=== PATIENT | male | born 1955 | race Caucasian/White ===

== ENCOUNTER 2021-03-03 16:00 | Inpatient (IN) | payer MEDICARE, MEDICAID ==
[2021-03-03] MEDS ORDERED: Ondansetron PF 4 MG/2 ML Vial SLOW IVP PRN (21:02)
[2021-03-03] MEDS ORDERED: Albuterol Sulfate 2.5 mg/3 ml Neb NEB PRN (21:02)
[2021-03-03] MEDS ORDERED: Acetaminophen 325 MG TAB PO PRN ×2 (21:08→21:12)
[2021-03-03] MEDS ORDERED: Meropenem 500 MG VIAL IV SCH (21:15)
[2021-03-03 21:51] LABS: Calc. Creatinine Clearance 0 mL/min (70-130)
[2021-03-03] MEDS ORDERED: Meropenem 1 GM in Sodium Chloride 0.9% 100 ML IVPB SCH (22:00)
[2021-03-03 22:30] VITALS: BMI 20.1
[2021-03-04 05:12] LABS: #Basophils 0.1 thou/uL (0.0-0.2); #Eosinphils 0.2 thou/uL (0.0-0.7); #Lymphocytes 0.7 thou/uL (1.20-3.40); #Monocytes 0.5 thou/uL (0.11-0.59); #Neutrophils 3.1 thou/uL (1.40-6.50); %Basophils 2.3 % (0.0-1.0); %Eosinophils 4.2 % (0.0-10.0); %Lymphocytes 14.8 % (21.0-51.0); %Monocytes 10.9 % (0.0-10.0); %Neutrophils 67.8 % (42.0-75.0); Hemoglobin 13.3 g/dL (14.0-18.0); Mean Corpuscular HGB CONC 33.5 g/dL (32.0-36.0); Mean Corpuscular Hemoglobin 33.4 pg (27.0-31.0); Mean Corpuscular Volume 99.9 fL (78.0-98.0); Platelet Count 138 thou/uL (130-400); RBC Distribution Width 13.4 % (11.5-14.5); Red Blood Cell (RBC) Count 3.96 mill/uL (4.70-6.10); White Blood Cell (WBC) Count 4.6 thou/uL (4.8-10.8)
[2021-03-04 05:18] LABS: Anion Gap 10 mmol/L (10-20); BUN (Urea Nitrogen) 7 mg/dL (8.4-25.7); Calc. Creatinine Clearance 130 mL/min (70-130); Calcium 8.1 mg/dL (7.8-10.44); Carbon Dioxide 22 mmol/L (23-31); Chloride 108 mmol/L (98-107); Glucose 86 mg/dL (80-115); Potassium 3.9 mmol/L (3.5-5.1); Sodium 136 mmol/L (136-145)
[2021-03-04] MEDS: Meropenem 1 GM in Sodium Chloride 0.9% 100 ML IVPB SCH ×3 (06:02→21:32)
[2021-03-04] MEDS: Senokot S 8.6-50 MG TAB PO SCH ×2 (09:54→21:33)
[2021-03-04] MEDS: Polyethylene Glycol 3350 17 GM Packet PO SCH (09:54)
[2021-03-04] MEDS: Calcium Carbonate 600 MG + Vit D TAB PO SCH (09:55)
[2021-03-04 14:10] LABS: SARS-CoV-2 PCR by NAA Not Detected (NotDetected)
[2021-03-05] MEDS: Senokot S 8.6-50 MG TAB PO SCH ×2 (09:32→21:32)
[2021-03-05] MEDS: Calcium Carbonate 600 MG + Vit D TAB PO SCH (09:32)
[2021-03-05] MEDS: Polyethylene Glycol 3350 17 GM Packet PO SCH (09:33)
[2021-03-05] MEDS: Meropenem 1 GM in Sodium Chloride 0.9% 100 ML IVPB SCH ×3 (09:35→21:35)
[2021-03-06] MEDS: Meropenem 1 GM in Sodium Chloride 0.9% 100 ML IVPB SCH ×3 (06:10→21:23)
[2021-03-06] MEDS: Calcium Carbonate 600 MG + Vit D TAB PO SCH (10:37)
[2021-03-06] MEDS: Senokot S 8.6-50 MG TAB PO SCH ×2 (10:37→21:23)
[2021-03-06] MEDS: Polyethylene Glycol 3350 17 GM Packet PO SCH (10:38)
[2021-03-07] MEDS: Meropenem 1 GM in Sodium Chloride 0.9% 100 ML IVPB SCH ×3 (05:38→21:40)
[2021-03-07] MEDS: Senokot S 8.6-50 MG TAB PO SCH ×2 (10:13→21:37)
[2021-03-07] MEDS: Calcium Carbonate 600 MG + Vit D TAB PO SCH (10:13)
[2021-03-07] MEDS: Polyethylene Glycol 3350 17 GM Packet PO SCH (10:13)
[2021-03-08] MEDS: Meropenem 1 GM in Sodium Chloride 0.9% 100 ML IVPB SCH ×3 (06:17→21:36)
[2021-03-08] MEDS: Polyethylene Glycol 3350 17 GM Packet PO SCH (09:39)
[2021-03-08] MEDS: Senokot S 8.6-50 MG TAB PO SCH ×2 (09:39→21:37)
[2021-03-08] MEDS: Calcium Carbonate 600 MG + Vit D TAB PO SCH (09:39)
[2021-03-09] MEDS: Meropenem 1 GM in Sodium Chloride 0.9% 100 ML IVPB SCH ×3 (05:48→21:29)
[2021-03-09] MEDS: Calcium Carbonate 600 MG + Vit D TAB PO SCH (08:14)
[2021-03-09] MEDS: Polyethylene Glycol 3350 17 GM Packet PO SCH (08:14)
[2021-03-09] MEDS: Senokot S 8.6-50 MG TAB PO SCH ×2 (08:14→21:29)
[2021-03-10] MEDS: Meropenem 1 GM in Sodium Chloride 0.9% 100 ML IVPB SCH ×3 (05:20→21:28)
[2021-03-10] MEDS: Polyethylene Glycol 3350 17 GM Packet PO SCH (08:20)
[2021-03-10] MEDS: Calcium Carbonate 600 MG + Vit D TAB PO SCH (08:20)
[2021-03-10] MEDS: Senokot S 8.6-50 MG TAB PO SCH ×2 (08:20→21:28)
[2021-03-11] MEDS: Meropenem 1 GM in Sodium Chloride 0.9% 100 ML IVPB SCH (05:18)
[2021-03-11 05:44] VITALS: BP 119/77; TEMP 97.7
[2021-03-11] MEDS: Calcium Carbonate 600 MG + Vit D TAB PO SCH (08:34)
[2021-03-11] MEDS: Senokot S 8.6-50 MG TAB PO SCH (08:34)
[2021-03-11] MEDS: Polyethylene Glycol 3350 17 GM Packet PO SCH (08:34)
== END 2021-03-11 16:15 | DRG 871 ==
LOC: BURMED 16:00 → UNDOADMIN 16:00
PROVIDERS: ADMIT Family Medicine; ATTEND Family Medicine
DX: A41.51 Sepsis due to Escherichia coli [E. coli] (principal); R65.21 Severe sepsis with septic shock; G82.50 Quadriplegia, unspecified; N39.0 Urinary tract infection, site not specified; B96.20 Unspecified Escherichia coli [E. coli] as the cause of diseases classified elsewhere; R62.50 Unspecified lack of expected normal physiological development in childhood; F79 Unspecified intellectual disabilities; Z20.822 Contact with and (suspected) exposure to COVID-19
CPT/HCPCS: 36415; 80048; 82565; 85025; 87040; J2185; J3490; U0003; U0005